=== PATIENT | male | born 1935 | race Caucasian/White ===

== ENCOUNTER 2020-03-15 00:35 | Emergency (ER) | payer MEDICARE ==
[~2020-03-15] VITALS: Ht 172.7 cm; Wt 87.6 kg
--- NOTE | 2020-03-15 01:28 | PHYS DOC ---
General Adult EDM: Chief Complaint: MECHANICAL FALL HPI: HPI: ".. I tripped and hit the dresser.. ".. " I did not black out or anything.. but I take a blood thinner.. so I wanted to make sure I did not have a bled in my head.. I did knock off the skin.. pretty good..." I take that Eliquis stuff.. " Patient is a 84 year old male who presents with above hx and head injury. Patient states injury occurred because of a trip and fall. Patient complaining of abrasion forehead. Patient pain mild generalized headache and upper neck tenderness. Patient takes anticoagulants for his coronary artery disease, A. fib and stents. Patient has past medical history of hypertension, heart block, with pacemaker placement, proximal atrial fibrillation, chronic renal insufficiency/disease stage III, hyperparathyroidism, lymphedema, cancer, gout and arthritis. Patient normally follows with Dr. Eduardo Review of Systems: Review of Systems: Constitutional: Denies fever or chills Eyes: Denies change in visual acuity HENT: Complains of head injury and upper neck pain Respiratory: Denies cough or shortness of breath Cardiovascular: Denies chest pain or edema GI: Denies abdominal pain, nausea, vomiting, bloody stools or diarrhea : Denies dysuria Musculoskeletal: Complains of chronic arthritis Integument: Denies rash Neurologic: Denies headache, focal weakness or sensory changes Endocrine: Denies polyuria or polydipsia Lymphatic: Denies swollen glands Psychiatric: Denies depression or anxiety Family History: Family History: Noncontributory to presentation Current Medications: Current Meds: See nursing for home meds Allergies: Allergies: No known drug allergies Physical Exam: PE: Constitutional: Moderate acute distress, non-toxic appearance. [] HENT: Normocephalic, contusion, abrasion and hematoma to forehead, bilateral external ears normal, oropharynx moist, no oral exudates, nose normal. [] Eyes: PERRLA, EOMI, conjunctiva mild injection, no discharge. [] Neck: Normal range of motion, neck tenderness, supple, no stridor. [] Cardiovascular: Irregular heart rate and rhythm, PMI to the left, pacer Lungs & Thorax: Bilateral breath sounds equal apex with few scattered wheezes auscultation [] surgical scar. Abdomen: Bowel sounds normal, soft, no tenderness, no masses, no pulsatile masses. Surgical scars. 1 testicle Skin: Warm, dry, no erythema, no rash. Poor turgor Back: No tenderness, no CVA tenderness. [] Extremities: No tenderness, no cyanosis, no clubbing, ROM intact, no edema. Arthritic changes. Surgical scars in groin Neurologic: Alert and oriented X 3, moves all extremities on request, is ambulatory, does have distal sensory, no focal deficits noted. [] Psychologic: Affect anxious, judgement normal, mood normal. [] EKG: EKG: [] Radiology/Procedures: Radiology/Procedures: [][address] [address] IMAGING REPORT Signed PATIENT: ALBERTO HENNING ACCOUNT: [id number] : 1935 LOCATION: ER AGE: 84 SEX: M EXAM STATUS: REG ER ORD. PHYSICIAN: PHILLIP MUÑOZ MD REASON: trip, fall, hit head dresser, on anticoagulants PROCEDURE: CT HEAD AND CERVICAL SPINE WO STUDY: CT head and cervical spine without contrast INDICATION: Fall. Trauma to the head. COMPARISON: None. TECHNIQUE: Axial CT imaging through the head and cervical spine without the use of intravenous contrast. Sagittal and coronal reformats were obtained. One or more of the following individualized dose reduction techniques were utilized for this examination: 1. Automated exposure control 2. Adjustment of the mA and/or kV according to patient size 3. Use of iterative reconstruction technique. FINDINGS: CT head: No acute intracranial hemorrhage. Punctate increased density foci at the right frontal region such as on image 19 series 2, favored artifactual. No localized mass effect, midline shift or hydrocephalus. No CT evidence for an acute cortical infarction. CSF density at the anterior aspect of the left middle cranial fossa is most compatible with a subarachnoid cyst. Chronic extra-axial mineralization at the high right frontal region. Patchy low-attenuation within the bihemispheric subcortical white matter. Small focus of low attenuation along the wall thalamus, image 16 series 2. Intracranial atherosclerotic calcifications. No depressed calvarial fracture. CT cervical spine: No acute fracture or traumatic malalignment. Degenerative osseous and soft tissue findings surrounding the atlantodental interface. Multilevel discogenic arthrosis, facet degeneration and uncovertebral joint hypertrophy. Osseous neural foraminal stenosis most severe on the left at C3-C4. No severe central canal stenosis is apparent. No soft tissue sequela of trauma seen throughout the neck. Heterogeneity of the partially imaged left thyroid lobe without a discrete nodule meeting size criteria for dedicated follow-up. Scattered calcific atherosclerosis. No apical pneumothorax. IMPRESSION: CT head: 1. No acute intracranial abnormality by CT. 2. Findings involving the bihemispheric subcortical white matter which are most likely on account of chronic microvascular ischemic change. Suspected small remote pin inserter infarct of the left thalamus. Additional chronic observations detailed in the body the report. CT cervical spine: 1. No acute fracture or traumatic malalignment. 2. Multilevel/multifactorial degenerative changes, as above. Electronically signed by: TEZ CALDERON MD (03/15/2020 2:42 AM) [id number] DICTATED AND SIGNED BY: TEZ CALDERON MD DATE: 03/15/20 0242 CC: PHILLIP MUÑOZ MD; SILVER EDUARDO DO ~ Heart Score: Risk Factors: Risk Factors: DM, Current or recent (<one month) smoker, HTN, HLP, family history of CAD, obesity. Risk Scores: Score 0 - 3: 2.5% MACE over next 6 weeks - Discharge Home Score 4 - 6: 20.3% MACE over next 6 weeks - Admit for Clinical Observation Score 7 - 10: 72.7% MACE over next 6 weeks - Early Invasive Strategies Course & Med Decision Making: Course & Med Decision Making Pertinent Labs and Imaging studies reviewed. (See chart for details) Pt. requesting discharge. Refused admit for observation. Patient's abrasion clean and antibiotic ointment applied. Patient to monitor for mental status changes. Apply Polysporin 4 times a day. Follow-up primary care. Return if any concerns. Patient to stay with someone that can check on his wellbeing. Impression: 1. Trip and fall 2. Head injury-contusion and abrasion [] Dragon Disclaimer: Draglyssa Disclaimer: This electronic medical record was generated, in whole or in part, using a voice recognition dictation system. Departure Departure: Referrals: SILVER EDUARDO DO (PCP) Sabine Disclaimer This chart was dictated in whole or in part using Voice Recognition software in a busy, high-work load, and often noisy Emergency Department environment. It may contain unintended and wholly unrecognized errors or omissions. Dragon Disclaimer This chart was dictated in whole or in part using Voice Recognition software in a busy, high-work load, and often noisy Emergency Department environment. It may contain unintended and wholly unrecognized errors or omissions. PHILLIP MUÑOZ MD Mar 15, 2020 01:28
[2020-03-15] MEDS ORDERED: DIPH,PERTUSS(ACELL),TET VAC/PF 0.5 ML SYRINGE. VAX IM ONE (02:00)
[2020-03-15] MEDS ORDERED: BACITRACIN ZINC TOPICAL OINT PACKET. TP ONE (02:00)
--- NOTE | 2020-03-15 02:45 | RAD ---
STUDY: CT head and cervical spine without contrast INDICATION: Fall. Trauma to the head. COMPARISON: None. TECHNIQUE: Axial CT imaging through the head and cervical spine without the use of intravenous contrast. Sagittal and coronal reformats were obtained. One or more of the following individualized dose reduction techniques were utilized for this examination: 1. Automated exposure control 2. Adjustment of the mA and/or kV according to patient size 3. Use of iterative reconstruction technique. FINDINGS: CT head: No acute intracranial hemorrhage. Punctate increased density foci at the right frontal region such as on image 19 series 2, favored artifactual. No localized mass effect, midline shift or hydrocephalus. No CT evidence for an acute cortical infarction. CSF density at the anterior aspect of the left middle cranial fossa is most compatible with a subarachnoid cyst. Chronic extra-axial mineralization at the high right frontal region. Patchy low-attenuation within the bihemispheric subcortical white matter. Small focus of low attenuation along the wall thalamus, image 16 series 2. Intracranial atherosclerotic calcifications. No depressed calvarial fracture. CT cervical spine: No acute fracture or traumatic malalignment. Degenerative osseous and soft tissue findings surrounding the atlantodental interface. Multilevel discogenic arthrosis, facet degeneration and uncovertebral joint hypertrophy. Osseous neural foraminal stenosis most severe on the left at C3-C4. No severe central canal stenosis is apparent. No soft tissue sequela of trauma seen throughout the neck. Heterogeneity of the partially imaged left thyroid lobe without a discrete nodule meeting size criteria for dedicated follow-up. Scattered calcific atherosclerosis. No apical pneumothorax. IMPRESSION: CT head: 1. No acute intracranial abnormality by CT. 2. Findings involving the bihemispheric subcortical white matter which are most likely on account of chronic microvascular ischemic change. Suspected small remote media technician infarct of the left thalamus. Additional chronic observations detailed in the body the report. CT cervical spine: 1. No acute fracture or traumatic malalignment. 2. Multilevel/multifactorial degenerative changes, as above. Electronically signed by: TEZ CALDERON MD (03/15/2020 2:42 AM) [id number]
[2020-03-15 03:15] VITALS: BP 201/80
== END 2020-03-15 03:25 | disposition home or self-care (01) ==
LOC: ER 00:35
DX: S00.83XA Contusion of other part of head, initial encounter (principal); I48.91 Unspecified atrial fibrillation; I25.10 Atherosclerotic heart disease of native coronary artery without angina pectoris; M19.90 Unspecified osteoarthritis, unspecified site; Z95.0 Presence of cardiac pacemaker; W01.0XXA Fall on same level from slipping, tripping and stumbling without subsequent striking against object, initial encounter; Y93.89 Activity, other specified; Y92.89 Other specified places as the place of occurrence of the external cause; Y99.8 Other external cause status
CPT/HCPCS: 70450; 72125; 90471; 90715; 99285-25

== ENCOUNTER 2020-08-30 06:53 | Emergency (ER) | payer MEDICARE ==
[~2020-08-30] VITALS: Ht 172.7 cm; Wt 87.7 kg
--- NOTE | 2020-08-30 07:29 | PHYS DOC ---
Past History Past Medical History: A-Fib, CAD, Cancer, High Cholesterol, Hypertension, Other Additional Past Medical Histor: CKD STAGE 3, BACK PAIN, GOUT Past Surgical History: Appendectomy, Cholecystectomy, Coronary Bypass Surgery, Pacemaker Additional Past Surgical Histo: lymphnodes RLE removed, prostatectomy, right orchiectomy Smoking: Non-smoker Alcohol Use: Rarely Drug Use: None General Adult EDM: Chief Complaint: GI PROBLEM HPI: HPI: 84-year-old male presents with report of abdominal pain that started at 2200 l ast night. Patient does report some associated nausea and "dry heaves ". Denies any diarrhea or constipation. Denies fever or chills. Patient reports recent cardiac catheterization at [facility] 6 days ago. Patient denies any chest pain. Denies swelling or erythema at cath site. Review of Systems: Review of Systems: Constitutional: Denies fever or chills Eyes: Denies redness or eye pain HENT: Denies nasal congestion or sore throat Respiratory: Denies cough or shortness of breath Cardiovascular: Denies chest pain or palpitations GI: Reports diffuse abdominal pain, nausea, and dry heaves; denies constipation or diarrhea : Denies dysuria or hematuria Musculoskeletal: Denies back pain or joint pain Integument: Denies rash or skin lesions Neurologic: Denies headache, focal weakness or sensory changes Complete systems were reviewed and found to be within normal limits, except as documented in this note. Allergies: Allergies: Allergies Coded Allergies Type Severity Reaction Last Updated Verified No Known Allergies Allergy Unknown 08/30/20 Yes Physical Exam: PE: Constitutional: Well developed, well nourished, uncomfortable, non-toxic appearance HENT: Normocephalic, atraumatic Eyes: Conjunctiva normal, no discharge Neck: Normal range of motion, supple Lungs & Thorax: No respiratory distress, equal chest rise and fall Abdomen: Soft, diffuse tenderness but more focal to left upper quadrant, voluntary guarding, no distention Skin: Warm, dry, no erythema, no rash Back: No tenderness, no CVA tenderness Extremities: No tenderness, ROM intact, 2+ edema to LLE (chronic lymphedema) Neurologic: Alert and oriented X 3, no focal deficits noted Psychologic: Affect normal, judgment normal Current Patient Data: Vital Signs: Vital Signs Date Time Temp Pulse Resp B/P (MAP) Pulse Ox O2 Delivery O2 Flow Rate FiO2 08/30/20 07:05 97.4 73 18 221/111 (147) 96 Room Air EKG: EKG: @0711 NSR at 69bpm, NO ST elevation, QRS 92ms, QT/QTc 412/443ms Radiology/Procedures: Radiology/Procedures: PROCEDURE: CT ABD PELV W/ IV CONTRST ONLY CT ABDOMEN+PELVIS W History: Abdominal/epigastric pain. History of renal stents. Comparison: None. Technique: CT of the abdomen and pelvis with intravenous contrast. Findings: Lung bases: Bilateral dependent changes. Partially visualized right ventricular pacemaker lead. General abdomen: No ascites. No free air. Liver : Normal in size and attenuation. No masses seen. Gallbladder/Biliary Tree: Gallbladder surgically absent versus completely decompressed. Minimal intrahepatic biliary ductal dilatation. Common bile duct measures upper limits of normal 7 mm. Pancreas: Fatty atrophy of the pancreas with fat stranding at the pancreatic head and uncinate. No focal fluid collection. Heavily peripherally calcified 3.2 cm ovoid nodule at the pancreatic tail likely represents sequela of old pancreatitis. Spleen: Normal in size and attenuation. Adrenal glands: Mild bilateral thickening. Kidneys: No hydronephrosis or hydroureter. Bilateral renal cortical atrophy and perinephric fat stranding. Punctate bilateral nephroliths. Gastrointestinal: Unremarkable decompressed stomach. Minimal wall thickening of the third portion of the duodenum. No evidence of small bowel obstruction. Appendix not visualized. No evidence of appendicitis. Partial sacralization of the terminal ileum. Decompressed colon at the splenic flexure without evidence of obstruction. Loop of sigmoid colon contained within left inguinal hernia. Sigmoid diverticulosis. Lymph nodes: No lymphadenopathy. Vessels: Heavy aortic atherosclerosis with vascular stent identified at the origin of the left renal artery. Dilated 1.9 cm diameter right common femoral artery with 1 cm diameter enhancing lumen and approximately 3.1 cm of mural thrombus. Pelvic organs: Status post prostatectomy with multiple surgical clips. The bladder is unremarkable. Soft tissues: Left inguinal hernia with approximately 3.0 cm diameter neck containing loop of nonobstructed sigmoid colon. Bones: No acute or aggressive lesions. Advanced arellano lumbar disc and facet disease. Partially visualized sternotomy. Impression: 1. Peripancreatic fat stranding at the head and uncinate may represent acute interstitial pancreatitis. Correlate with laboratory findings. No abscess identified. Suspect mild wall thickening at the duodenum is secondary to pancreatic process or peristalsis. 2. Left inguinal hernia containing loops of sigmoid colon which appears nonobstructed. 3. Fusiform dilation of the right common femoral artery up to 1.9 cm with 1 cm diameter enhancing lumen. This may represent mural hematoma or pseudoaneurysm related to prior vascular access. ------ Exposure: One or more of the following individualized dose reduction techniques were utilized for this examination: 1. Automated exposure control 2. Adjustment of the mA and/or kV according to patient size 3. Use of iterative reconstruction technique. Electronically signed by: Dmitriy Horne MD (08/30/2020 9:20 AM) [facility] Heart Score: C/O Chest Pain: N/A Course & Med Decision Making: Course & Med Decision Making Pertinent Labs and Imaging studies reviewed. (See chart for details) Patient presents with abdominal pain discomfort with associated nausea and "dry heaves ". Blood pressure significantly elevated upon arrival. Patient does report not taking his medication this morning. Pain/nausea addressed. Blood pressure addressed. EKG stable. Labs obtained and posted to chart. LFTs stable. Lipase significantly elevated. Troponin within normal limits. Hypomagnesemia addressed. CT abdomen/pelvis with findings consistent for acute pancreatitis. Patient does have a history of prior cholecystectomy. Patient reports he drinks 1 beer monthly but did have a beer last night. Denies history of pancreatitis. Patient requiring admission for further evaluation and treatment. Patient requests to be admitted at [facility], as that is where he receives all his care. Additionally patient may require GI consultation. Utilized [facility] transfer number. Discussed case with Dr. Milind Marshall, who is accepting of transfer to [facility] for admission. Discussed findings and plan with patient and family, who acknowledge understanding and agreement. Sabine Disclaimer: Sabine Disclaimer: This electronic medical record was generated, in whole or in part, using a voice recognition dictation system. Departure Departure: Impression: Primary Impression: Pancreatitis Qualified Codes: K85.90 - Acute pancreatitis without necrosis or infection, unspecified Additional Impression: Hypomagnesemia Disposition: 02 SHORT TERM HOSPITAL ([facility]- Dr. Marshall accepting) Condition: STABLE Referrals: SILVER EDUARDO DO (PCP) PARAM CEDILLO DO Aug 30, 2020 07:29
[2020-08-30] MEDS ORDERED: IV NORMAL SALINE 1,000ML 1,000 ML IV SCH (07:30)
[2020-08-30] MEDS ORDERED: ONDANSETRON PF 4 MG/2 ML VIAL. IVP ONE ×2 (07:45→10:30)
[2020-08-30] MEDS ORDERED: FAMOTIDINE 20 MG/2 ML VIAL IVP ONE (07:45)
[2020-08-30 07:58] LABS: BASO % 0 % (0-3); EOS % 0 % (0-3); HEMATOCRIT 41.9 % (39.0-53.0); HEMOGLOBIN 14.1 g/dL (13.0-17.5); LYMPH % 17 % (24-48); MEAN CORPUSCULAR HEMOGLOBIN 32 pg (25-35); MEAN CORPUSCULAR HGB CONC 34 g/dL (31-37); MEAN CORPUSCULAR VOLUME 95 fL (79-100); MONO # 0.2 x10^3/uL (0.0-1.1); MONO % 2 % (0-9); NEUT # 9.3 x10^3uL (1.8-7.7); NEUT % 81 % (31-73); PLATELET COUNT 234 x10^3/uL (140-400); RED BLOOD COUNT 4.43 x10^6/uL (4.30-5.70); WHITE BLOOD COUNT 11.6 x10^3/uL (4.0-11.0)
[2020-08-30] MEDS ORDERED: hydrALAZINE 20 MG/ML VIAL. IV ONE ×2 (08:00→08:20)
[2020-08-30 08:21] LABS: CALCIUM 9.5 mg/dL (8.5-10.1); CREATININE 1.6 mg/dL (0.7-1.3); GFR 41.2; POTASSIUM 4.2 mmol/L (3.5-5.1)
[2020-08-30] MEDS ORDERED: IOHEXOL 300 MG/ML 50 ML VIAL. ONE (08:34)
[2020-08-30 08:38] LABS: MAGNESIUM 1.6 mg/dL (1.8-2.4); TOTAL PROTEIN 7.9 g/dL (6.4-8.2)
[2020-08-30] MEDS ORDERED: CONTRAST GIVEN. MC PRN (08:45)
[2020-08-30] MEDS ORDERED: MORPHINE SULFATE 4 MG/ML DISP.SYRIN. IV ONE ×2 (08:45→10:30)
[2020-08-30] MEDS ORDERED: IOHEXOL 300 MG/ML 75 ML VIAL. IV ONE (08:45)
--- NOTE | 2020-08-30 09:22 | RAD ---
CT ABDOMEN+PELVIS W History: Abdominal/epigastric pain. History of renal stents. Comparison: None. Technique: CT of the abdomen and pelvis with intravenous contrast. Findings: Lung bases: Bilateral dependent changes. Partially visualized right ventricular pacemaker lead. General abdomen: No ascites. No free air. Liver : Normal in size and attenuation. No masses seen. Gallbladder/Biliary Tree: Gallbladder surgically absent versus completely decompressed. Minimal intra hepatic biliary ductal dilatation. Common bile duct measures upper limits of normal 7 mm. Pancreas: Fatty atrophy of the pancreas with fat stranding at the pancreatic head and uncinate. No fo ihsan fluid collection. Heavily peripherally calcified 3.2 cm ovoid nodule at the pancreatic tail likel y represents sequela of old pancreatitis. Spleen: Normal in size and attenuation. Adrenal glands: Mild bilateral thickening. Kidneys: No hydronephrosis or hydroureter. Bilateral renal cortical atrophy and perinephric fat stran ding. Punctate bilateral nephroliths. Gastrointestinal: Unremarkable decompressed stomach. Minimal wall thickening of the third portion of the duodenum. No evidence of small bowel obstruction. Appendix not visualized. No evidence of appendi citis. Partial sacralization of the terminal ileum. Decompressed colon at the splenic flexure without evidence of obstruction. Loop of sigmoid colon contained within left inguinal hernia. Sigmoid divert iculosis. Lymph nodes: No lymphadenopathy. Vessels: Heavy aortic atherosclerosis with vascular stent identified at the origin of the left renal artery. Dilated 1.9 cm diameter right common femoral artery with 1 cm diameter enhancing lumen and ap proximately 3.1 cm of mural thrombus. Pelvic organs: Status post prostatectomy with multiple surgical clips. The bladder is unremarkable. Soft tissues: Left inguinal hernia with approximately 3.0 cm diameter neck containing loop of nonobst ructed sigmoid colon. Bones: No acute or aggressive lesions. Advanced arellano lumbar disc and facet disease. Partially visualiz ed sternotomy. Impression: 1. Peripancreatic fat stranding at the head and uncinate may represent acute interstitial pancreatit is. Correlate with laboratory findings. No abscess identified. Suspect mild wall thickening at the du odenum is secondary to pancreatic process or peristalsis. 2. Left inguinal hernia containing loops of sigmoid colon which appears nonobstructed. 3. Fusiform dilation of the right common femoral artery up to 1.9 cm with 1 cm diameter enhancing isael men. This may represent mural hematoma or pseudoaneurysm related to prior vascular access. ------ Exposure: One or more of the following individualized dose reduction techniques were utilized for thi s examination: 1. Automated exposure control 2. Adjustment of the mA and/or kV according to patient size 3. Use of iterative reconstruction technique. Electronically signed by: Dmitriy Horne MD (08/30/2020 9:20 AM) [facility]
--- NOTE | 2020-08-30 09:24 | EKG ---
[address] [address] Test Date: 2020-08-30 Test Time: 07:11:51 Pat Name: ALBERTO MARTINO Department: Room: Gender: M Manager Crisis: TRES : 1935 Requested By: PARAM CEDILLO Order Number: [id number] Reading MD: Measurements Intervals [place] Rate: 69 P: -52 FL: 304 QRS: 41 QRSD: 92 T: 52 QT: 412 QTc: 443 Interpretive Statements SINUS RHYTHM PROLONGED FL INTERVAL ABNORMAL ECG RI6.02 No previous ECG available for comparison
[2020-08-30] MEDS ORDERED: MAGNESIUM SULFATE 2GM 50 ML IV ONE (10:30)
[2020-08-30 12:34] VITALS: BP 185/75
== END 2020-08-30 12:38 | disposition short-term general hospital (02) ==
LOC: ER 06:53
DX: K85.90 Acute pancreatitis without necrosis or infection, unspecified (principal); E83.42 Hypomagnesemia; I48.91 Unspecified atrial fibrillation; I25.10 Atherosclerotic heart disease of native coronary artery without angina pectoris; E78.00 Pure hypercholesterolemia, unspecified; I12.9 Hypertensive chronic kidney disease with stage 1 through stage 4 chronic kidney disease, or unspecified chronic kidney disease; N18.30 Chronic kidney disease, stage 3 unspecified; M10.9 Gout, unspecified; Z90.89 Acquired absence of other organs; Z90.49 Acquired absence of other specified parts of digestive tract; Z95.0 Presence of cardiac pacemaker; Z95.1 Presence of aortocoronary bypass graft
CPT/HCPCS: 36415; 74177; 80053; 82553; 83605; 83690; 83735; 84484; 85025; 85610; 85730; 93005; 96361; 96365; 96366; 96375; 96376; 99285; G0480; J0360; J2270; J2405; J3010; J3475; J3490; J7030; Q9967

== ENCOUNTER → 2021-07-28 | Outpatient (CLI) | payer MEDICARE ==
[2021-07-29 20:55] LABS: CHOLESTEROL/HDL RATIO 2.2
== END ==
LOC: LAB 11:18
PROVIDERS: ATTEND Internal Medicine Cardiovascular Disease
DX: I10 Essential (primary) hypertension (principal); E78.5 Hyperlipidemia, unspecified; I25.10 Atherosclerotic heart disease of native coronary artery without angina pectoris; I65.29 Occlusion and stenosis of unspecified carotid artery; I48.0 Paroxysmal atrial fibrillation; Z95.0 Presence of cardiac pacemaker
CPT/HCPCS: 80061